=== PATIENT | male | born 1975 | race Asian ===

== ENCOUNTER 2018-10-30 12:19 | Emergency (ER) | payer OTHER ==
[~2018-10-30] VITALS: Ht 167.6 cm; Wt 71.2 kg
[2018-10-30 12:23] VITALS: BP 93/61; Ht 167.6 cm; Wt 71.2 kg
== END 2018-10-30 14:09 | disposition home or self-care (01) ==
LOC: ED 12:19
DX: M77.8 Other enthesopathies, not elsewhere classified (principal)

== ENCOUNTER 2020-09-13 16:37 | Emergency (ER) | payer OTHER ==
[~2020-09-13] VITALS: Ht 170.2 cm; Wt 71.2 kg
[2020-09-13 16:38] VITALS: Ht 170.2 cm; Wt 71.2 kg
[2020-09-13 17:38] LABS: CALCIUM 9.2 mg/dL (8.5-10.1); CARBON DIOXIDE 28.8 mmol/L (21-32); CHLORIDE SERUM 103 mmol/L (98-107); CREATININE SERUM 1.2 mg/dL (0.7-1.3); GFR1 > 60 mL/min; GLUCOSE SERUM 92 mg/dL (74-106); POTASSIUM SERUM 4.4 mmol/L (3.5-5.1); SODIUM SERUM 139 mmol/L (136-145)
[2020-09-13 17:43] LABS: ALKALINE PHOSPHATASE 62 U/L (46-116); ALT/SGPT 51 U/L (16-63); AST/SGOT 22 U/L (15-37); TOTAL PROTEIN, SERUM 8.2 g/dL (6.4-8.2)
[2020-09-13 17:47] LABS: BASOPHIL % 0.6 % (0-2); PLATELET COUNT 227 x10^3mcL (130-400); RED CELL DISTRIBUTION WIDTH 12.4 % (11.5-14.5)
[2020-09-13 18:29] VITALS: BP 109/74
== END 2020-09-13 18:20 | disposition home or self-care (01) ==
LOC: ED 16:37
PROVIDERS: Emergency Medicine
DX: R07.89 Other chest pain (principal)
CPT/HCPCS: Q0092